=== PATIENT | male | born 1940 | race Caucasian/White ===

== ENCOUNTER 2016-08-08 08:39 | Emergency (ER) | payer MEDICARE ==
[~2016-08-08] VITALS: Ht 152.4 cm; Wt 88.0 kg
[~2016-08-08 08:39] MED LIST: ACYCLOVIR400 MG PO; AMLODIPINE5 MG PO; ARIXTR1 SC; ASPIRIN EC81 MG PO; CEPHALEXIN500 MG OR; CIPROFLOXACN500 MG PO; CORTISPORIN OTI10 ML AS; FENOFIBRATE134 MG PO; FLULAVAL IM; GARAMYCIN0.31 OD; HYDROCO/APAP1 TA9 PO; HYDROCO/APAP1 TAB OR; LAMISIL250 MG PO; LOFIBRA134 MG OR; LORTAB 7.5-3251 TAB PO; MAXITROL0.11 OP; METOPROL TAR100 MG PO; METOPROLOL50 MG OR; METRONIDAZOL500 MG PO; NIZORAL2 % EX; NORVASC5 M1 OR; OMEPRAZOLE40 MG PO; PERCOCET 5/325M1 TAB PO; PRAVASTATIN20 MG OR; PRAVASTATIN20 MG PO; PRILOSEC40 MG OR; PRILOSEC40 MG PO; TOBRADEX 2.5 ML OP
[2016-08-08] MEDS ORDERED: EC-NAPROSYN500 MG PO (10:20)
[2016-08-08 10:38] VITALS: BP 155/74
== END 2016-08-08 10:54 | disposition home or self-care (01) ==
LOC: ED 08:39
DX: S92.352A Displaced fracture of fifth metatarsal bone, left foot, initial encounter for closed fracture (principal); S92.342A Displaced fracture of fourth metatarsal bone, left foot, initial encounter for closed fracture; S43.402A Unspecified sprain of left shoulder joint, initial encounter; I10 Essential (primary) hypertension; K21.9 Gastro-esophageal reflux disease without esophagitis; E78.00 Pure hypercholesterolemia, unspecified; W17.89XA Other fall from one level to another, initial encounter; Y92.009 Unspecified place in unspecified non-institutional (private) residence as the place of occurrence of the external cause

== ENCOUNTER 2016-08-30 08:34 | Day surgery (SDC) | payer MEDICARE ==
[~2016-08-30] VITALS: Ht 152.4 cm; Wt 83.9 kg
[~2016-08-30 08:34] MED LIST changes: +EC-NAPROSYN500 MG PO
[2016-08-30 09:34] LABS: HEMATOCRIT 41.6 % (39.0-50.0); IMMATURE GRANULOCYTES 0.6 % (0.0-1.0); MEAN CELL VOLUME 92.9 fL CALC (80.0-100.0); MEAN CORPUSCULAR HGB 31.3 pG CALC (26.0-32.0); MEAN CORPUSCULAR HGB CONC 33.7 g/L CALC (32.0-36.0); NEUT# 4.46 thou/uL (1.82-7.42); RED BLOOD COUNT 4.48 mill/uL (4.70-6.10); RED CELL DISTRI WIDTH 14.1 % (11.5-15.5)
[2016-08-30 10:05] LABS: ALBUMIN 3.9 g/dL (3.2-5.0); ALKALINE PHOSPHATASE 40 u/l (38-126); ANION GAP 16 (6-22 (CALC)); BILIRUBIN, TOTAL 0.4 mg/dL (0.0-1.4); BUN 17 mg/dL (8-23); BUN/CREATININE RATIO 23 (12-20 (CALC)); CALCIUM 9.1 mg/dL (8.4-10.2); CARBON DIOXIDE 21 mmol/l (22-30); CHLORIDE 110 mmol/l (95-108); CREATININE 0.8 mg/dL (0.7-1.3); GFR > 60 ML/MIN (>=60 (CALC)); GFR FOR AFR.AMER. > 60 ML/MIN (>=60 (CALC)); GLUCOSE 89 mg/dL (82-115); POTASSIUM 4.2 mmol/l (3.5-5.1); SGOT/AST 20 u/l (19-48); SGPT/ALT 30 u/l (11-66); SODIUM 143 mmol/l (137-146); TOTAL PROTEIN 6.6 g/dL (6.3-8.2)
[2016-08-30] MEDS ORDERED: HYDROCODONE/ACE1 TAB PO (12:36)
[2016-08-30] MEDS ORDERED: CEPHALEXIN500 MG PO (12:36)
[2016-08-30] MEDS ORDERED: EC ASPIRIN325 M1 PO (12:37)
[2016-08-30 14:04] VITALS: BP 157/73
== END 2016-08-30 13:15 | disposition home or self-care (01) ==
LOC: ORM 08:34 → ENDO 08:34 → ORM 09:30
PROVIDERS: Nurse Anesthetist, Certified Registered; ATTEND Podiatrist Foot & Ankle Surgery
PROC: 0QSP04Z Reposition Left Metatarsal with Internal Fixation Device, Open Approach (ICD-10-PCS; principal; 2016-08-30)
PROC: 0QSP04Z Reposition Left Metatarsal with Internal Fixation Device, Open Approach (ICD-10-PCS; 2016-08-30)
PROC: 079T3ZZ Drainage of Bone Marrow, Percutaneous Approach (ICD-10-PCS; 2016-08-30)
DX: S92.342A Displaced fracture of fourth metatarsal bone, left foot, initial encounter for closed fracture (principal); S92.352A Displaced fracture of fifth metatarsal bone, left foot, initial encounter for closed fracture; I10 Essential (primary) hypertension; E78.5 Hyperlipidemia, unspecified; K21.9 Gastro-esophageal reflux disease without esophagitis; W01.0XXA Fall on same level from slipping, tripping and stumbling without subsequent striking against object, initial encounter; Y92.009 Unspecified place in unspecified non-institutional (private) residence as the place of occurrence of the external cause; Z96.642 Presence of left artificial hip joint